=== PATIENT | male | born 1955 | race Caucasian/White ===

== ENCOUNTER 2023-05-14 22:12 | Emergency (ER) | payer OTHER ==
[~2023-05-14] VITALS: Ht 180.3 cm; Wt 102.0 kg
[2023-05-14 22:21] VITALS: BP 119/88
[2023-05-14 22:30] VITALS: BP 102/64
[2023-05-14] MEDS ORDERED: NORVASC2.5 M1 PO (22:38)
[2023-05-14] MEDS ORDERED: ACYCLOVIR200 MG PO (22:38)
[2023-05-14] MEDS ORDERED: [UNRECOGNIZED DRUG - REMARK] (22:39)
[2023-05-14 23:00] VITALS: BP 109/66
[2023-05-15 00:08] LABS: BASO% 0.6 % (0-3); EOS% 1.8 % (0-8); HEMATOCRIT 42.2 % (39.0-50.0); HEMOGLOBIN 14.4 g/dl (14.0-18.0); LYMPH% 21.4 % (15-41); MEAN CELL VOLUME 99.1 fL CALC (80.0-100.0); MEAN CORPUSCULAR HGB 33.8 pG CALC (26.0-32.0); MEAN CORPUSCULAR HGB CONC 34.1 g/dL CAL (32.0-36.0); MONO% 6.6 % (2-13); NEUT# 4.61 thou/uL (1.82-7.42); NEUT% 69.6 % (42-76); RED BLOOD COUNT 4.26 mill/uL (4.70-6.10); RED CELL DISTRI WIDTH 11.2 % (11.5-15.5)
[2023-05-15] MEDS ORDERED: METHOCARBAMOL500 MG PO (01:43)
[2023-05-15 02:15] VITALS: BP 110/70
== END 2023-05-15 02:15 | disposition home or self-care (01) | DRG 605 ==
LOC: ED 22:12
PROVIDERS: Family Medicine
DX: S00.411A Abrasion of right ear, initial encounter (principal); S40.812A Abrasion of left upper arm, initial encounter; S40.811A Abrasion of right upper arm, initial encounter; Y04.0XXA Assault by unarmed brawl or fight, initial encounter